=== PATIENT | female | born 1975 | race Caucasian/White ===

== ENCOUNTER 2019-09-28 11:46 | Inpatient (IN) | payer MEDICAID, SELFPAY ==
[2019-09-28] VITALS (9 sets, daily range): BP systolic 89–157; BP diastolic 55–87; PULSE 63–80; RESP 13–20; TEMP 36.7–36.8; O2SAT 99–100; BMI 22.8
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
--- NOTE | 2019-09-28 12:13 | ECG_ITS ---
Measurements Intervals [place] Rate: 75 P: 54 VA: 151 QRS: 21 QRSD: 92 T: 31 QT: 389 QTc: 436 Interpretive Statements SINUS RHYTHM DELAYED PRECORDIAL R/S TRANSITION BORDERLINE ECG Electronically Signed On 09-28-2019 12:22:45 MANAGER MBA by Thomas Jim D.O.
[2019-09-28 12:33] LABS: Basophils Absolute Auto 0.1 K/mm3 (0.0-0.1); Basophils Percent Auto 0.8 % (0.2-1.2); Eosinophils Percent Auto 0.1 % (0-4.4); Hematocrit 30.7 % (37.0-47.0); Hemoglobin 9.4 g/dL (12.0-15.0); Immature Granulocyte Absolute 0.07 K/mm3 (0.00-0.031); Immature Granulocyte Percent A 0.7 % (0-0.5); Lymphocytes Absolute Auto 1.49 K/mm3 (0.9-3.2); Mean Corpuscular HGB Conc 30.6 g/dl (32-36); Mean Corpuscular Hemoglobin 23.4 pg (26-34); Mean Corpuscular Volume 76.4 fl (80-100); Mean Platelet Volume 9.9 fl (7.4-10.4); Monocytes Absolute Auto 0.8 K/mm3 (0.1-0.6); Neutrophils Absolute Auto 8.2 K/mm3 (1.3-6.7); Neutrophils Percent Auto 77.4 % (45.5-73.1); Platelet Count Result 463 k/mm3 (150-375); Red Blood Count 4.02 M/mm3 (4.2-5.4); Red Cell Distribution Width 14.9 % (11.5-14.5); White Blood Count 10.7 K/mm3 (4.5-10.0)
[2019-09-28 13:04] LABS: Albumin Level 4.1 g/dL (3.5-5.1); Alkaline Phosphatase 121 U/L (38-126); Aspartate Amino Transferase 20 U/L (14-36); Bilirubin,Total 0.1 mg/dL (0.2-1.3); Blood Urea Nitrogen 8 mg/dL (7-17); Calcium 8.8 mg/dL (8.4-10.2); Carbon Dioxide 16 mmol/L (22-30); Chloride 92 mmol/L (98-107); Estimated CRCL calculation 74 ml/min; Estimated Glomerular Filt Rate > 60; Sodium 130 mmol/L (137-145)
[2019-09-28 13:13] LABS: Valproic Acid 46.2 ug/mL (50-120)
[2019-09-28 13:23] LABS: Add Urine Microscopic? YES; Appearance Urine Clear (Clear); Bilirubin Urine Negative (Negative); Blood Urine Negative (Negative); Color Urine Colorless (Yellow); Glucose Urine UA 3+ mg/dL (Negative); Ketones Urine Trace mg/dL (Negative); Leukocyte Esterase Ur Negative LEU/UL (Negative); Mucus Urine Rare /lpf; Nitrate Urine Negative (Negative); Protein Urine Negative (Negative); RBC Urine 0-2 /hpf (0-2); Squamous Epithelial Cell Urine Occasional /hpf (Few); Urobilinogen Urine Negative mg/dL (<2.0)
[2019-09-28 13:25] LABS: Specific Grav Ur 1.031 (1.001-1.035)
[2019-09-28 13:25] LABS: Glucose 644 mg/dL (65-105)
[2019-09-28 13:51] LABS: Alanine Aminotransferase 20 U/L (4-35)
[2019-09-28] MEDS: SODIUM CHLORIDE 0.9% IV 1,000 ML 999 ML IV CONT (14:00)
[2019-09-28 14:06] LABS: Alveolar/Arterial O2 Gradient 15.2 mmHg; Fractional Inspired Oxygen 21 %; HCO3 ABG 16.8 mEq/l (22.0-26.0); Modified Allen's Test Pass; Oxygen Content ABG 13.9 %vol (16.0-22.0); Oxygen Saturation ABG 97.7 % (95.0-100.0); Oxyhemoglobin 96.7 % THb (90.0-100.0); PCO2 ABG 28.1 mmHg (35.0-45.0); PO2 ABG 100.9 mmHg (80.0-100.0); Site Drawn RIGHT RADIAL; Total Hemoglobin 10.1 g/dL (12.0-18.0); pH ABG 7.394 (7.350-7.450)
[2019-09-28 14:07] LABS: Beta-Hydroxybutyrate/Acetoacetate 0.12 mmol/L (0.02-0.27)
[2019-09-28] MEDS: INSULIN HUMAN REGULAR (*BKC) 100 UNITS/ML 7 UNITS IV PUSH (15:11)
[2019-09-28 16:13] LABS: Glucose Point of Care 297 (65-105)
--- NOTE | 2019-09-28 16:41 | PC.NURSE ---
This patient, Taylor Blackman, was admitted to Intensive Care Unit-5. Patient/family oriented to hospital policies and general routines including ID bracelet, bed and alarms, visiting hours, pain management, procedures, bathroom and other care routines, personal items, smoking policy, room service/diet, and visiting hours. Valuables list has been completed. Information on how to activate the Rapid Response Team has been discussed. Patient/Family are encouraged to report perceived risks to care and to ask questions if they do not understand what they are told or what they should do.
[2019-09-28 16:53] LABS: Hemoglobin A1C 15.9 % (<5.7)
[2019-09-28 16:57] LABS: Phosphorus 2.1 mg/dL (2.5-4.5)
[2019-09-28 16:59] LABS: Blood Urea Nitrogen 6 mg/dL (7-17); Calcium 9.4 mg/dL (8.4-10.2); Carbon Dioxide 21 mmol/L (22-30); Chloride 102 mmol/L (98-107); Estimated CRCL calculation 84 ml/min; Estimated Glomerular Filt Rate > 60; Glucose 114 mg/dL (65-105); Potassium 3.3 mmol/L (3.4-5.0); Sodium 140 mmol/L (137-145)
[2019-09-28] MEDS: KCL 20 MEQ/D5/0.45% SOD CHL 1,000 ML 150 ML IV CONT ×2 (17:12→23:06)
[2019-09-28] MEDS: SODIUM CHLORIDE 0.9% IV 1,000 ML 150 ML IV CONT (17:13)
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
[2019-09-28 17:21] LABS: Glucose Point of Care 130 (65-105)
[2019-09-28 18:15] LABS: Glucose Point of Care 78 (65-105)
[2019-09-28 18:15] LABS: Glucose Point of Care 79 (65-105)
[2019-09-28 19:07] LABS: Glucose Point of Care 94 (65-105)
[2019-09-28 20:07] LABS: Blood Urea Nitrogen 5 mg/dL (7-17); Calcium 8.8 mg/dL (8.4-10.2); Carbon Dioxide 23 mmol/L (22-30); Chloride 102 mmol/L (98-107); Estimated CRCL calculation 84 ml/min; Estimated Glomerular Filt Rate > 60; Glucose 95 mg/dL (65-105); Potassium 3.7 mmol/L (3.4-5.0); Sodium 138 mmol/L (137-145)
[2019-09-28 20:18] LABS: Glucose Point of Care 116 (65-105)
[2019-09-28 21:11] LABS: Glucose Point of Care 124 (65-105)
[2019-09-28] MEDS: DIVALPROEX SODIUM ER 500 MG TAB 1000 MG PO (21:54)
[2019-09-28 22:00] LABS: Glucose Point of Care 119 (65-105)
[2019-09-28 23:18] LABS: Glucose Point of Care 157 (65-105)
[2019-09-29] VITALS (8 sets, daily range): BP systolic 86–124; BP diastolic 52–79; PULSE 63–71; RESP 12–16; TEMP 36.5–37.1; O2SAT 99–100
[2019-09-29 00:42] LABS: Blood Urea Nitrogen 4 mg/dL (7-17); Calcium 8.2 mg/dL (8.4-10.2); Carbon Dioxide 23 mmol/L (22-30); Chloride 106 mmol/L (98-107); Estimated CRCL calculation 96 ml/min; Estimated Glomerular Filt Rate > 60; Glucose 127 mg/dL (65-105); Potassium 3.9 mmol/L (3.4-5.0); Sodium 137 mmol/L (137-145)
[2019-09-29] MEDS: INSULIN GLARGINE (*BKC) 100 UNITS/ML 10 UNITS SUB-Q (01:37)
[2019-09-29 05:21] LABS: Blood Urea Nitrogen 5 mg/dL (7-17); Carbon Dioxide 24 mmol/L (22-30); Chloride 106 mmol/L (98-107); Estimated CRCL calculation 84 ml/min; Estimated Glomerular Filt Rate > 60; Glucose 207 mg/dL (65-105); Potassium 4.4 mmol/L (3.4-5.0); Sodium 137 mmol/L (137-145)
[2019-09-29] MEDS: LEVOTHYROXINE SODIUM 100 MCG TABLET 200 MCG PO (06:44)
[2019-09-29 07:21] LABS: Glucose Point of Care 190 (65-105)
[2019-09-29 08:55] LABS: Blood Urea Nitrogen 4 mg/dL (7-17); Calcium 8.1 mg/dL (8.4-10.2); Carbon Dioxide 23 mmol/L (22-30); Chloride 105 mmol/L (98-107); Estimated CRCL calculation 84 ml/min; Estimated Glomerular Filt Rate > 60; Glucose 211 mg/dL (65-105); Potassium 4.4 mmol/L (3.4-5.0); Sodium 136 mmol/L (137-145)
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
[2019-09-29] MEDS: INSULIN GLARGINE (*BKC) 100 UNITS/ML SUB-Q (10:16)
[2019-09-29 12:07] LABS: Glucose Point of Care 307 (65-105)
[2019-09-29] MEDS: INSULIN ASPART (*BKC) 100 UNITS/ML SUB-Q ×2 (12:12→12:22)
[2019-09-29 14:11] LABS: Blood Urea Nitrogen 5 mg/dL (7-17); Calcium 8.5 mg/dL (8.4-10.2); Carbon Dioxide 23 mmol/L (22-30); Chloride 102 mmol/L (98-107); Estimated CRCL calculation 74 ml/min; Estimated Glomerular Filt Rate > 60; Glucose 327 mg/dL (65-105); Potassium 4.4 mmol/L (3.4-5.0); Sodium 136 mmol/L (137-145)
--- NOTE | 2019-09-29 16:09 | PM.DS ---
DS: Diagnosis Admitting Diagnosis Admitting Diagnosis: Type 2 diabetes mellitus with ketoacidosis without coma Discharge Diagnosis (1) DKA (diabetic ketoacidoses): Qualifiers: Diabetes mellitus complication detail: without coma Diabetes mellitus type: type 2 Qualified Code(s): E11.10 - Type 2 diabetes mellitus with ketoacidosis without coma Code(s): E11.10 - Type 2 diabetes mellitus with ketoacidosis without coma Status: Acute Assessment and Plan: Patient had a glucose of 644 on admission. Anion gap 22. She was admitted to ICU and started on DKA protocol. peer educator consult. Patient has been without a physician for over a year. She has been rationing insulin. Her A1c returned 15.9. Gap closed. She was switched to subcu insulin. Will have a follow-up with the music educator. List of providers accepting new patients was given. (2) Seizure: Code(s): R56.9 - Unspecified convulsions Status: Chronic Assessment and Plan: Patient provides a history that she awoke with jaw fatigue felt she had a seizure on the morning of admission. She had a witnessed event later in the day prior to admission. No tongue biting urine incontinence. She did have right-sided weakness. She had similar symptoms in June with left-sided weakness. Depakote level low at 46. Patient states she is compliant with her medications. I did talk with the patient's neurologist personally. He did not feel patient's medication dose should be adjusted. He agreed that the etiology of her seizures was probably related to the DKA. Patient was encouraged to remain compliant with her medications. She was advised not to drive. She was advised not to do any activity that would put herself or others in danger if she had a seizure (ie: Swimming alone). She voices understanding of this. The neurologist stated that he will call the patient to arrange for a follow-up appointment. (3) Diabetes mellitus: Code(s): E11.9 - Type 2 diabetes mellitus without complications Status: Acute Assessment and Plan: As above. (4) Anxiety: Code(s): F41.9 - Anxiety disorder, unspecified Status: Chronic Assessment and Plan: Patient's mood remains stable. We had Ativan available as needed. (5) Hypothyroidism: Code(s): E03.9 - Hypothyroidism, unspecified Status: Chronic Assessment and Plan: Stable. We continue her levothyroxine. DS: Summary Hospital Course Reason for hospitalization: 44yo female here for DKA and seizure. Please see H&P for details. Hospital Course: As above. Status at Discharge Functional status at discharge: independent ambulation Overall status at discharge: patient is back to baseline Time Spent with Patient Time attestation: Total time spent providing and/or coordinating discharge services: 45 minutes of Time spent: Greater than 30 minutes Exam Narrative: Exam Narrative: Gen - NARD Chest - CTA bilaterally, nml RR CV - RRR S1/S2 Abd - Soft, NT/ND, Positive BS Ext - No pedal edema Neuro - Alert and oriented. Nonfocal exam. Psych - Nml mood and affect Skin - Warm and dry DS: Data Data Completed and Pending Labs on day of discharge: Labs from last 24 hours 09/29/19 09/29/19 09/29/19 13:27 12:05 08:24 Sodium 136 L 136 L Potassium 4.4 4.4 Chloride 102 105 Carbon Dioxide 23 23 BUN 5 L 4 L Creatinine 0.80 0.70 Estim Creat Clear Calc 74 84 Estimated GFR > 60 > 60 Glucose 327 H 211 H POC Capillary Glucose 307 H Hemoglobin A1c Calcium 8.5 8.1 L Phosphorus Magnesium Valproic Acid 09/29/19 09/29/19 09/29/19 07:18 04:25 00:18 Sodium 137 137 Potassium 4.4 3.9 Chloride 106 106 Carbon Dioxide 24 23 BUN 5 L 4 L Creatinine 0.70 0.60 L Estim Creat Clear Calc 84 96 Estimated GFR > 60 > 60 Glucose 207 H 127 H POC Capillary Glucose 190 H Hemoglo
--- NOTE | 2019-09-30 10:29 | PC.NURSE ---
Urine cx is negative. Single organism<10,000 cfu/ml. Believed to be external and internal colonizers. Dr. Kamilla sanders.
--- NOTE | 2019-09-30 10:31 | PC.NURSE ---
MRSA swab is negative. Dr. Kamilla sanders.
== END 2019-09-29 16:53 | disposition home or self-care (01) | DRG 420 ==
LOC: ANHED 14:43 → ANHICU 14:52
PROVIDERS: Internal Medicine; Nurse Practitioner; Admitting Provider Internal Medicine; Emergency Provider Emergency Medicine; Visit Provider Internal Medicine
DX: E11.10 Type 2 diabetes mellitus with ketoacidosis without coma (principal); Z79.4 Long term (current) use of insulin; F41.9 Anxiety disorder, unspecified; E03.9 Hypothyroidism, unspecified; R56.9 Unspecified convulsions; Z87.820 Personal history of traumatic brain injury; V29.9XXS Motorcycle rider (driver) (passenger) injured in unspecified traffic accident, sequela; S06.9X0S Unspecified intracranial injury without loss of consciousness, sequela; S02.91XS Unspecified fracture of skull, sequela
CPT/HCPCS: 36415; 36600; 80048; 80053; 80164; 81001; 81025; 82010; 82805; 83036; 83735; 84100; 85025; 87081; 87086; 87088; 93005; 96361; 96365; 99285; A9270; J1815; J3480; J7030